=== PATIENT | male | born 1995 | race African-American/Black ===

== ENCOUNTER 2023-11-08 08:43 | Emergency (ER) | payer MEDICAID ==
[~2023-11-08] VITALS: Ht 195.6 cm; Wt 86.0 kg
[2023-11-08 08:45] VITALS: O2SAT 100
[2023-11-08 13:25] LABS: HEMATOCRIT. 42.2 % (42.0-52.0); HEMOGLOBIN. 14.3 g/dL (14.0-18.0); MEAN CORPUSCULAR HEMOGLOBIN 32.1 pg (28.0-32.0); MEAN CORPUSCULAR HGB CONC 33.9 g/dL (31.0-37.0); MEAN CORPUSCULAR VOLUME 94.6 fL (80.0-94.0); MEAN PLATELET VOLUME 8.5 fl (7.4-10.4); PLATELET 269 x1000/uL (130-400); RED BLOOD CELL COUNT 4.47 mill/uL (4.7-6.1); RED CELL DISTRIBUTION WIDTH 12.4 % (11.6-14.6)
[2023-11-08 13:38] LABS: DIFFERENTIAL COMMENT 1
[2023-11-08 13:42] LABS: PROTHROMBIN TIME 11.1 sec (9.6-11.0)
[2023-11-08 13:44] LABS: ALANINE AMINOTRANSFERASE 23 IU/L (10-49); ASPARTATE AMINOTRANSFERASE 28 IU/L (<34); BILIRUBIN TOTAL 0.6 mg/dL (0.1-1.0); CALCIUM 9.7 mg/dL (8.7-10.4); CARBON DIOXIDE 29 mEq/L (21-32); CHLORIDE 101 mEq/L (98-107); GLUCOSE 108 mg/dL (70-105); PROTEIN TOTAL 8.4 g/dL (6.0-8.3); SODIUM 136 mEq/L (136-145); UREA NITROGEN BLOOD 9 mg/dL (9-23)
[2023-11-08 14:20] LABS: PLATELET ESTIMATE NORMAL
[2023-11-08] MEDS ORDERED: CYCLOBENZAPRINE 10MG TABLET PO NR (15:45)
[2023-11-08] MEDS ORDERED: KETOROLAC 15MG/ML VIAL IM NR (15:45)
[2023-11-08 16:09] VITALS: BP 181/92
[2023-11-08 16:19] LABS: CLARITY URINE CLEAR (CLEAR); COLOR URINE YELLOW (YELLOW); GLUCOSE URINE NEGATIVE (NEGATIVE); KETONES URINE 1+ (NEGATIVE); LEUKOCYTE ESTERASE URINE NEGATIVE (NEGATIVE); NITRITE URINE NEGATIVE (NEGATIVE); OCCULT BLOOD URINE 2+ (NEGATIVE); PH URINE 5.5 (4.5-8.0); PROTEIN URINE TRACE (NEGATIVE); SPECIFIC GRAVITY URINE 1.022 (1.005-1.030)
[2023-11-08 16:32] LABS: BACTERIA URINE TRACE; SQUAMOUS EPITHELIAL CELL URINE FEW /lpf (RARE/1+); WBC URINE 0-2 /hpf (0-2)
[2023-11-08] MEDS ORDERED: TAMS-11 MT (16:32)
[2023-11-08] MEDS ORDERED: IBUP-2029 MT (16:32)
[2023-11-08 16:55] VITALS: PULSE 64; RESP 12; TEMP 98.4
== END 2023-11-08 16:57 | disposition home or self-care (01) ==
LOC: ER 08:43
DX: R10.9 Unspecified abdominal pain (principal)
CPT/HCPCS: 99285; 76705; 80053; 81003; 83690; 85025; 85610; 36415; 96372; J1885